=== PATIENT | female | born 1980 | race Caucasian/White ===

== ENCOUNTER 2016-12-27 06:32 | Inpatient (IN) | payer OTHER ==
[~2016-12-27] VITALS: Ht 165.1 cm; Wt 91.9 kg
--- NOTE | ~2016-12-27 | OR ---
PATIENT'S NAME: TANIA AGUILAR [facility] AGE: 36 Y [address] ROOM: [place] [address] LOCATION: [facility] ADMIT DATE: 12/27/2016 OR/Procedure Report DISCHARGE DATE: FAMILY PHYSICIAN: Ruth Bahena MD ATTENDING PHYSICIAN: Leanne Stevens SURGEON: Leanne Stevens MD POT ROOM SUPERVISOR: DATE OF PROCEDURE: 12/27/2016 PREOPERATIVE DIAGNOSES: 1. Intrauterine at 39 weeks. 2. Induction of labor. 3. Arrest of descent. POSTOPERATIVE DIAGNOSES: 1. Intrauterine at 39 weeks. 2. Induction of labor. 3. Arrest of descent. PROCEDURE: Low-vacuum assisted vaginal delivery. ESTIMATED BLOOD LOSS: 300 mL. ANESTHESIA: Epidural. FINDINGS: Male , score 8 and 9. Weight 8 pounds and 0 ounces. Intact placenta, 3-vessel cord. No lacerations. Clear amniotic fluid. INDICATIONS: This patient is the 36-year-old, -0-1-3 female. She has a history of thrombophlebitis and large varicosities for which she felt a lot more comfortable using Lovenox for. At her previous , we had problem with these and the only thing that alleviated her symptoms was going on Lovenox because she kept getting superficial clots. Therefore she was on that for the end of this and then transferred to heparin over the last couple of weeks, and therefore had a planned induction of labor, so she could get her epidural. DESCRIPTION OF PROCEDURE: The patient had artificial rupture of membranes. She progressed along a normal labor curve to complete using Pitocin. She underwent expulsive efforts for about 30 to 40 minutes and did not move the baby beyond +3 station. Baby was asynclitic. It was initially OP, I rotated it to OA, and she still could not seem to deliver it, just seemed to be coming down at an angle that she was unable to bring it underneath the pubic bone. She was consented for a vacuum delivery. The estimated weight was 3800 g. Her bladder had just been emptied with removal of the Mack catheter. PATIENT'S NAME: TANIA AGUILAR [facility] AGE: 36 Y [address] ROOM: [place] [address] LOCATION: [facility] ADMIT DATE: 12/27/2016 OR/Procedure Report DISCHARGE DATE: FAMILY PHYSICIAN: Ruth Bahena MD ATTENDING PHYSICIAN: Leanne Stevens Anesthesia was adequate. Consent was given from the parents and the pelvis was deemed to be adequate. A maximum of 40 cm of mercury were used and it was used for 1 contraction with no pop offs. PROCEDURE: A mushroom cup vacuum was chosen. It was placed at the point of maximum flexion, steady downward pull, steady upward pull was used and the baby delivered with just 1 contraction and the vacuum was disengaged. The rest of the fetus delivered. The nose and mouth were bulb suctioned. The cord was clamped and cut. The infant was handed to awaiting team. Cord blood was drawn. Cord pH was drawn. The placenta delivered with manual traction. Cervix, vagina, and perineum were examined and there were no lacerations noted. COMPLICATIONS: None. CONDITION: Mom stable in room. Infant to nursery. MD RIGOBERTO RIZZOJ/modl /[id number] d: 12/28/16 1015 t: 01/10/17 0901, OPERATIVE SUMMARY
[~2016-12-27 06:32] MED LIST: ADVIL200 MG PO; PRENATAL 1+1)(P1 TAB PO; TYLENOL EXTRA500 MG PO
[2016-12-27 07:41] LABS: BASOPHIL % 0.4 %; EOSINOPHIL # 0.1 K/uL (0.0-0.5); EOSINOPHIL % 1.6 %; IMMATURE GRANULOCYTE % 0.5 %; LYMPHOCYTE # 2.1 K/uL (0.8-4.0); LYMPHOCYTE % 24.1 %; MCH 27.8 pg (27.0-34.0); MCHC 33.3 gm/dL (32.0-36.5); MCV 83.3 fl (83.0-98.0); MONOCYTE # 0.8 K/uL (0.0-1.0); MONOCYTE % 9.7 %; MPV 10.2 fl (9.4-12.4); NEUTROPHIL # (ANC) 5.5 K/uL (1.8-7.8); NEUTROPHIL % 63.7 %; NRBC % 0 /100WBC (0-0.00); PLATELET COUNT 227 K/uL (150-450); RBC 3.96 M/uL (3.50-5.50); RDW-CV 13.3 % (11.9-14.6); WBC 8.6 K/uL (4.0-11.0)
[2016-12-27] MEDS ORDERED: ZANTAC (NON-FO150 MG PO (08:21)
[2016-12-27] MEDS ORDERED: CLARITIN10 M2 PO (08:21)
[2016-12-27] MEDS ORDERED: VALTREX500 MG PO (08:24)
[2016-12-27] MEDS ORDERED: HEPARIN10000 UNIT SUB-Q (08:24)
[2016-12-27] MEDS ORDERED: PREPARATION H C51 G1 TOP (08:25)
[2016-12-27 17:03] LABS: BICARBONATE 21.9 mmol/L (18.0-23.0); PCO2 54 mmHg (35-45); PO2 16 mmHg (80-90)
[2016-12-28 04:53] LABS: BASOPHIL % 0.3 %; EOSINOPHIL # 0.2 K/uL (0.0-0.5); EOSINOPHIL % 1.2 %; HEMATOCRIT 30.3 % (33.0-46.0); HEMOGLOBIN 9.9 g/dL (11.0-15.0); IMMATURE GRANULOCYTE # 0.1 K/uL (0.0-0.3); IMMATURE GRANULOCYTE % 0.5 %; LYMPHOCYTE # 2.4 K/uL (0.8-4.0); LYMPHOCYTE % 18.2 %; MCH 27.7 pg (27.0-34.0); MCHC 32.7 gm/dL (32.0-36.5); MCV 84.9 fl (83.0-98.0); MONOCYTE # 1.1 K/uL (0.0-1.0); MONOCYTE % 7.9 %; MPV 9.7 fl (9.4-12.4); NEUTROPHIL # (ANC) 9.6 K/uL (1.8-7.8); NEUTROPHIL % 71.9 %; NRBC % 0 /100WBC (0-0.00); RBC 3.57 M/uL (3.50-5.50); RDW-CV 13.4 % (11.9-14.6); WBC 13.3 K/uL (4.0-11.0)
[2016-12-28 04:55] LABS: PLATELET COUNT 175 K/uL (150-450)
[2016-12-29] MEDS ORDERED: DERMOPLAST SPRA56 GM TOP (10:11)
[2016-12-29] MEDS ORDERED: MOTRIN800 MG PO (10:11)
[2016-12-29] MEDS ORDERED: PERCOCET 5-3251 EACH PO (10:12)
[2016-12-29] MEDS ORDERED: SURFAK240 MG PO (10:12)
[2016-12-29] MEDS ORDERED: TUCKS1 EACH TOP (10:12)
== END 2016-12-29 12:15 | disposition disaster alternative care site (69) | DRG 775 ==
LOC: GOBM 06:32 → GOBS 06:32 → GOBM 06:33 → GOBS 06:33
PROVIDERS: ADMIT Obstetrics & Gynecology
PROC: 10D07Z6 Extraction of Products of Conception, Vacuum, Via Natural or Artificial Opening (ICD-10-PCS; principal; 2016-12-27)
PROC: 10907ZC Drainage of Amniotic Fluid, Therapeutic from Products of Conception, Via Natural or Artificial Opening (ICD-10-PCS; principal; 2016-12-27)
PROC: 3E033VJ Introduction of Other Hormone into Peripheral Vein, Percutaneous Approach (ICD-10-PCS; principal; 2016-12-27)
DX: O99.824 Streptococcus B carrier state complicating childbirth (principal); Z37.0 Single live birth; O62.1 Secondary uterine inertia; Z3A.39 39 weeks gestation of pregnancy
CPT/HCPCS: J2001; J2540; J2590; J3010; J7120